=== PATIENT | female | born 1955 | race Caucasian/White ===

== ENCOUNTER 2018-08-24 12:10 | Emergency (ER) | payer MEDICAID ==
[~2018-08-24] VITALS: Ht 160 cm; Wt 77.1 kg
[2018-08-24] MEDS ORDERED: NEXIUM40 MG PO (12:34)
[2018-08-24] MEDS ORDERED: POTASSIUM20 PO (12:35)
[2018-08-24] MEDS ORDERED: PREDNISONE 10 M10 MG PO (12:35)
[2018-08-24] MEDS ORDERED: ARMOUR THYROID60 M1 PO (12:35)
[2018-08-24] MEDS ORDERED: VITAMIN D1000 UNI1 PO (12:35)
[2018-08-24] MEDS ORDERED: NORCO 5-325 TA1 EACH PO ×2 (13:10→13:13)
[2018-08-24 13:26] VITALS: BP 144/90
== END 2018-08-24 13:26 | disposition home or self-care (01) ==
LOC: M.ERS 12:10
DX: S23.41XA Sprain of ribs, initial encounter (principal); M19.90 Unspecified osteoarthritis, unspecified site; M79.7 Fibromyalgia; K58.9 Irritable bowel syndrome, unspecified; Z88.8 Allergy status to other drugs, medicaments and biological substances; Z91.041 Radiographic dye allergy status; Z88.0 Allergy status to penicillin; Z88.6 Allergy status to analgesic agent; X50.1XXA Overexertion from prolonged static or awkward postures, initial encounter; Y92.89 Other specified places as the place of occurrence of the external cause; Y93.89 Activity, other specified; Y99.8 Other external cause status

== ENCOUNTER 2018-11-30 13:43 | Emergency (ER) | payer MEDICAID ==
[~2018-11-30] VITALS: Ht 160 cm; Wt 75.8 kg
[~2018-11-30 13:43] MED LIST: ARMOUR THYROID60 M1 PO; NEXIUM40 MG PO; NORCO 5-325 TA1 EACH PO; POTASSIUM20 PO; PREDNISONE 10 M10 MG PO; VITAMIN D1000 UNI1 PO
[2018-11-30] MEDS ORDERED: BACTRIM DS TAB1 EACH PO (14:10)
[2018-11-30] MEDS ORDERED: NORCO 5-325 TA1 EAC1 PO (14:12)
[2018-11-30 14:19] VITALS: BP 116/88
[2018-12-01] MEDS ORDERED: ZANTAC 150MG T150 MG PO (21:23)
== END 2018-11-30 14:20 | disposition home or self-care (01) ==
LOC: M.ERS 13:43
DX: N61.0 Mastitis without abscess (principal); K58.9 Irritable bowel syndrome, unspecified; M79.7 Fibromyalgia; M19.90 Unspecified osteoarthritis, unspecified site; Z88.0 Allergy status to penicillin; Z88.6 Allergy status to analgesic agent; Z91.041 Radiographic dye allergy status; Z88.8 Allergy status to other drugs, medicaments and biological substances

== ENCOUNTER 2018-12-01 21:11 | Inpatient (IN) | payer MEDICAID ==
[~2018-12-01] VITALS: Ht 160 cm; Wt 74.8 kg
[~2018-12-01 21:11] MED LIST changes: +BACTRIM DS TAB1 EACH PO; +NORCO 5-325 TA1 EAC1 PO
[2018-12-01 21:13] VITALS: BP 141/89
[2018-12-01] MEDS ORDERED: ZANTAC 150MG T150 MG PO (21:23)
[2018-12-01 21:42] LABS: ABSOLUTE BASOPHILS 0.1 thou/uL (0.0-0.2); ABSOLUTE EOSINOPHILS 0.1 thou/uL (0.0-0.7); ABSOLUTE LYMPHOCYTES 1.6 thou/uL (0.8-5.3); ABSOLUTE MONOCYTES 0.5 thou/uL (0.0-1.2); ABSOLUTE NEUTROPHILS 4.7 thou/uL (1.6-8.1); BASOPHILS 0.8 %; EOSINOPHILS 1.1 %; HEMATOCRIT 42.9 % (37.0-47.0); HEMOGLOBIN 14.3 gm/dL (12.0-15.0); LYMPHOCYTES 23.1 %; MCH 31.1 pg (26.0-34.0); MCHC 33.4 g/dL (28.0-37.0); MCV 93.3 fL (80.0-100.0); MONOCYTES 7.7 %; MPV 7.2 fl. (7.2-11.1); NUCLEATED RBCS 0 /100WBC; PLATELET COUNT* 204 thou/uL (150-400); POLYS 67.3 %; RDW-CV 14.1 % (10.5-14.5)
[2018-12-01 21:46] LABS: CALCIUM 8.5 mg/dL (8.5-10.1); CREATININE 1.2 mg/dL (0.6-1.3); POTASSIUM 3.4 mmol/L (3.5-5.1)
[2018-12-01 23:02] LABS: URINE BLOOD NEGATIVE (Negative); URINE CLARITY CLEAR; URINE COLOR YELLOW; URINE GLUCOSE-RANDOM NEGATIVE (Negative); URINE KETONES NEGATIVE (Negative); URINE LEUKOCYTES-REFLEX NEGATIVE (Negative); URINE NITRITE-REFLEX NEGATIVE (Negative); URINE PROTEIN TRACE (Negative); URINE SPECIFIC GRAVITY >= 1.030 (1.005-1.030); URINE UROBILINOGEN 0.2 E.U./dl (0.2-1.0)
[2018-12-01 23:09] LABS: URINE BILIRUBIN 1+ (Negative)
[2018-12-01 23:12] LABS: ICTOTEST (BILI CONFIRMATORY) Negative (Negative)
[2018-12-01 23:30] VITALS: BP 130/80
[2018-12-02 00:50] VITALS: BP 113/72
[2018-12-02 07:31] LABS: PROTIME 10.7 Seconds (9.20-11.50)
[2018-12-02 08:00] VITALS: BP 139/83
--- NOTE | 2018-12-02 09:47 | EKG ---
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 : 1955 Requested By: Mima Pop Order Number: [id number] MD: Farooq Trinh Measurements Intervals [place] Rate: 77 P: 48 CT: 118 QRS: 57 QRSD: 86 T: 43 QT: 406 QTc: 460 Interpretive Statements Sinus rhythm Borderline short CT interval Low voltage, extremity and precordial leads Abnormal R-wave progression, early transition No previous ECG available for comparison Electronically Signed On 12-02-2018 9:46:39 CDT by Farooq Trinh [email or web address] <ELECTRONICALLY SIGNED> By: Farooq Trinh MD, [facility] 12/02/18 0946 31 31 Farooq Trinh MD, [facility] /EPI
[2018-12-02 22:03] VITALS: BP 116/80
[2018-12-03] VITALS: BP 125/69
[2018-12-03 04:00] VITALS: BP 112/67
[2018-12-03 05:22] LABS: HEMATOCRIT 37.4 % (37.0-47.0); HEMOGLOBIN 12.6 gm/dL (12.0-15.0); MCH 31.3 pg (26.0-34.0); MCHC 33.6 g/dL (28.0-37.0); MCV 93.3 fL (80.0-100.0); MPV 7.1 fl. (7.2-11.1); NUCLEATED RBCS 0 /100WBC; PLATELET COUNT* 197 thou/uL (150-400); RBC 4.01 mil/uL (4.20-5.00); RDW-CV 13.8 % (10.5-14.5); WBC 11.5 thou/uL (4.0-11.0)
[2018-12-03 05:29] LABS: CALCIUM 8.4 mg/dL (8.5-10.1); MAGNESIUM 1.8 mg/dL (1.8-2.4); POTASSIUM 4.1 mmol/L (3.5-5.1)
[2018-12-03 06:04] LABS: ABSOLUTE LYMPHOCYTES 0.8 thou/uL (0.8-5.3); ABSOLUTE MONOCYTES 0.5 thou/uL (0.0-1.2); ABSOLUTE NEUTROPHILS 10.2 thou/uL (1.6-8.1); PLATELET ESTIMATE ADEQUATE
[2018-12-03 06:05] LABS: ANISOCYTOSIS 1+; POIKILOCYTOSIS 1+; POLYCHROMASIA Occasional
[2018-12-03 07:15] VITALS: BP 106/70
[2018-12-03 16:00] VITALS: BP 94/64
[2018-12-03 20:20] VITALS: BP 92/61
[2018-12-04 04:00] VITALS: BP 106/73
[2018-12-04 05:08] LABS: HEMATOCRIT 30.5 % (37.0-47.0)
[2018-12-04 05:23] LABS: HEMOGLOBIN 10.2 gm/dL (12.0-15.0)
[2018-12-04 09:23] VITALS: BP 93/51
[2018-12-04 16:00] VITALS: BP 103/69
[2018-12-04 20:00] VITALS: BP 92/62
[2018-12-05 07:47] VITALS: BP 100/68
[2018-12-05] MEDS ORDERED: SENOKOT-S1 TA2 PO ×2 (09:28→11:50)
[2018-12-05] MEDS ORDERED: NORCO 5-325 TA1 EAC1 PO ×2 (09:31→11:50)
[2018-12-05] MEDS ORDERED: ELIQUIS5 MG PO ×2 (09:33→11:50)
[2018-12-05 12:00] VITALS: BP 100/68
[2018-12-05 16:00] VITALS: BP 101/73
--- NOTE | 2018-12-06 02:06 | PATH ---
[place] [address] PATHOLOGY RPT PROCEDURE Name: JULIO CÉSAR ONOFRE Room: [address] IN M.R.#: [id number] Admission: 12/01/18 Date of : 55 Discharge: 12/05/18 Report #: [id number] Path Case #: [id number] [facility] Accession Number: [id number] . 01 Material submitted: . hip - BONE FROM FRACTURE SITE RIGHT HIP - FS. Modifiers: right . 02 Frozen section diagnosis: . FROZEN DIAGNOSIS WITH TOUCH PREP: (Juan Shipman MD) . Fracture site right hip: - Benign bone fragments and hematopoietic elements. Results are relayed directly to Dr. Campos in the operating room and a note is entered into the medical record. . Frozen section and touch prep performed at [facility], [address] [place] [address]. . FROZEN SECTION GROSS DESCRIPTION: Received fresh from the operating room accompanied by a label marked "Julio César Onofre, bone fracture right hip", are two fragments of hemorrhagic bony tissue aggregating measuring 1.4 x [address] Campos requests intraoperative evaluation for the possibility of malignancy. He notes that clinically there is no obvious neoplasia. Each of the fragments is cut into fairly easily and it is determined that frozen section study will be attempted on approximately half of the specimen and a touch prep is also prepared. Tissues from which frozen sections are performed are submitted in cassette A1 and the remainder of the entire specimen is submitted in cassette A2. (ELOY:antonio; ) BSM/QMS . 03 Diagnosis: "Bone from fracture site right hip", curettage: - Decalcified bone with reactive changes and focal fresh hemorrhage consistent with fracture site. - Bone marrow with trilineage hematopoiesis. - Skeletal muscle with mild reactive changes. (CLW:pit; 12/04/2018) QTP/12/04/2018 . 03 Electronically signed: . Cindy Marie MD, Pathologist NPI- [id number] . 01 Gross description: . Please see frozen section gross description [place] [address] PATHOLOGY RPT PROCEDURE Name: JULIO CÉSAR ONOFRE Room: [address] DIS IN M.R.#: [id number] Admission: 12/01/18 Date of : 55 Discharge: 12/05/18 Report #: [id number] Path Case #: [id number] located under the Frozen Section portion of this case. /QMS . 03 Pathologist provided ICD-10: S72.001A . 03 CPT . 278339, 612046, 319779 Specimen Comment: A courtesy copy of this report has been sent to Specimen Comment: [phone], . Specimen Comment: Report sent to and Performed at: 01 [facility] [address] [place] [id number] MD Robert Contreras MD Phone: [phone] Performed at: 02 [facility] [address] , [place], [place] [id number] MD Juan Shipman MD Phone: [phone] Performed at: 03 [facility] [address] [id number] MD Oscar Hernandez MD Phone: [phone]
== END 2018-12-05 20:30 | DRG 479 ==
LOC: M.ERS 21:11 → M.ORTHSURG 22:16 → M.TBA-ER 22:16 → M.ORTHSURG 22:16
PROVIDERS: Emergency Medicine; Family Medicine; Orthopaedic Surgery; ADMIT Internal Medicine
PROC: 0QS604Z Reposition Right Upper Femur with Internal Fixation Device, Open Approach (ICD-10-PCS; principal; 2018-12-02)
PROC: 0QB63ZX Excision of Right Upper Femur, Percutaneous Approach, Diagnostic (ICD-10-PCS; 2018-12-02)
DX: M84.451A Pathological fracture, right femur, initial encounter for fracture (principal); M19.90 Unspecified osteoarthritis, unspecified site; K21.9 Gastro-esophageal reflux disease without esophagitis; I10 Essential (primary) hypertension; L40.50 Arthropathic psoriasis, unspecified; E03.9 Hypothyroidism, unspecified; M79.7 Fibromyalgia; K58.9 Irritable bowel syndrome, unspecified; Z88.0 Allergy status to penicillin; Z88.8 Allergy status to other drugs, medicaments and biological substances; Z88.6 Allergy status to analgesic agent; Z91.041 Radiographic dye allergy status; Z90.49 Acquired absence of other specified parts of digestive tract

== ENCOUNTER 2018-12-05 14:55 | Inpatient (IN) | payer MEDICAID ==
[~2018-12-05] VITALS: Ht 160 cm; Wt 74.8 kg
[~2018-12-05 14:55] MED LIST changes: +ELIQUIS5 MG PO; +SENOKOT-S1 TA2 PO; +ZANTAC 150MG T150 MG PO
[2018-12-05 21:00] VITALS: BP 118/63
[2018-12-06 05:06] LABS: HEMATOCRIT 30.4 % (37.0-47.0); HEMOGLOBIN 10.3 gm/dL (12.0-15.0); MCH 31.7 pg (26.0-34.0); MCHC 33.7 g/dL (28.0-37.0); MCV 93.9 fL (80.0-100.0); RBC 3.24 mil/uL (4.20-5.00); RDW-CV 14.1 % (10.5-14.5); WBC 7.4 thou/uL (4.0-11.0)
[2018-12-06 05:11] LABS: CALCIUM 8.1 mg/dL (8.5-10.1); POTASSIUM 3.9 mmol/L (3.5-5.1)
[2018-12-06 08:36] VITALS: BP 114/75
[2018-12-06 19:53] VITALS: BP 99/66
[2018-12-07 03:07] LABS: GLYCOHEMOGLOBIN (HGB A1C) 5.1 % (4.8-5.6)
[2018-12-07 08:34] VITALS: BP 123/70
[2018-12-07 19:30] VITALS: BP 102/60
[2018-12-08 08:23] VITALS: BP 108/65
[2018-12-08 19:30] VITALS: BP 130/80
[2018-12-09 07:30] VITALS: BP 116/71
[2018-12-09 08:00] VITALS: BP 116/71
[2018-12-09 19:30] VITALS: BP 102/68
[2018-12-10 04:56] LABS: HEMATOCRIT 30.9 % (37.0-47.0); HEMOGLOBIN 10.4 gm/dL (12.0-15.0); MCH 31.4 pg (26.0-34.0); MCHC 33.6 g/dL (28.0-37.0); MCV 93.5 fL (80.0-100.0); MPV 6.7 fl. (7.2-11.1); RBC 3.3 mil/uL (4.20-5.00); RDW-CV 14.2 % (10.5-14.5); WBC 6.8 thou/uL (4.0-11.0)
[2018-12-10 05:13] LABS: CALCIUM 8.3 mg/dL (8.5-10.1); POTASSIUM 4.3 mmol/L (3.5-5.1)
[2018-12-10 07:30] VITALS: BP 102/68
[2018-12-10 08:00] VITALS: BP 103/70
[2018-12-10 19:30] VITALS: BP 102/72
[2018-12-11 07:56] VITALS: BP 105/71
[2018-12-11 20:31] VITALS: BP 115/69
[2018-12-12 08:11] VITALS: BP 98/61
[2018-12-12 20:28] VITALS: BP 100/59
[2018-12-13 08:00] VITALS: BP 129/83
[2018-12-13 20:00] VITALS: BP 108/66
[2018-12-14 08:26] VITALS: BP 110/69
[2018-12-14 21:20] VITALS: BP 122/68
[2018-12-15 08:21] VITALS: BP 129/67
[2018-12-15 20:00] VITALS: BP 103/68
[2018-12-16 08:00] VITALS: BP 115/72
[2018-12-16 19:30] VITALS: BP 98/60
[2018-12-17 07:30] VITALS: BP 98/70
[2018-12-17 20:23] VITALS: BP 105/67
[2018-12-18 08:00] VITALS: BP 110/72
[2018-12-18 20:28] VITALS: BP 98/62
[2018-12-19 08:00] VITALS: BP 106/78
[2018-12-19 13:49] VITALS: BP 106/78
== END 2018-12-19 17:11 | disposition home or self-care (01) | DRG 536 ==
LOC: M.REH 14:55
PROVIDERS: Family Medicine; ADMIT Physical Medicine & Rehabilitation
DX: S72.21XA Displaced subtrochanteric fracture of right femur, initial encounter for closed fracture (principal); D62 Acute posthemorrhagic anemia; E87.1 Hypo-osmolality and hyponatremia; L40.50 Arthropathic psoriasis, unspecified; E03.9 Hypothyroidism, unspecified; K58.9 Irritable bowel syndrome, unspecified; K21.9 Gastro-esophageal reflux disease without esophagitis; L40.52 Psoriatic arthritis mutilans; M79.7 Fibromyalgia; R29.6 Repeated falls; R53.81 Other malaise; G89.29 Other chronic pain; W18.39XA Other fall on same level, initial encounter; Y93.89 Activity, other specified; Y92.89 Other specified places as the place of occurrence of the external cause; Z79.52 Long term (current) use of systemic steroids; Z88.0 Allergy status to penicillin; Z88.8 Allergy status to other drugs, medicaments and biological substances; Z91.041 Radiographic dye allergy status; Z90.49 Acquired absence of other specified parts of digestive tract; Z79.891 Long term (current) use of opiate analgesic; Y99.8 Other external cause status

== ENCOUNTER → 2018-12-30 | Outpatient (CLI) | payer MEDICAID | LOC: M.LAB 12:00 | DX: S72.21XD Displaced subtrochanteric fracture of right femur, subsequent encounter for closed fracture with routine healing (principal); X58.XXXD Exposure to other specified factors, subsequent encounter ==

== ENCOUNTER 2019-02-04 20:37 | Emergency (ER) | payer MEDICAID ==
[~2019-02-04] VITALS: Ht 160 cm; Wt 74.8 kg
[2019-02-04] MEDS ORDERED: VITAMIN D350000 UNIT PO (20:52)
[2019-02-04] MEDS ORDERED: PEPCID40 MG PO (20:52)
[2019-02-04] MEDS ORDERED: NORCO 5-325 TA1 EAC1 PO (21:09)
[2019-02-04 21:32] VITALS: BP 136/86
== END 2019-02-04 21:40 | disposition home or self-care (01) ==
LOC: M.ERS 20:37
DX: M79.604 Pain in right leg (principal); E03.9 Hypothyroidism, unspecified; M19.90 Unspecified osteoarthritis, unspecified site; K58.9 Irritable bowel syndrome, unspecified; K21.9 Gastro-esophageal reflux disease without esophagitis; Z88.1 Allergy status to other antibiotic agents; Z91.041 Radiographic dye allergy status; Z88.0 Allergy status to penicillin; Z88.8 Allergy status to other drugs, medicaments and biological substances; Z86.2 Personal history of diseases of the blood and blood-forming organs and certain disorders involving the immune mechanism; Z90.49 Acquired absence of other specified parts of digestive tract

== ENCOUNTER → 2019-02-10 | Outpatient (CLI) | payer MEDICAID ==
[~2019-02-10] MED LIST changes: +PEPCID40 MG PO; +VITAMIN D350000 UNIT PO
== END ==
LOC: M.LAB 12:05
DX: E55.9 Vitamin D deficiency, unspecified (principal)

== ENCOUNTER 2019-03-19 09:15 | Emergency (ER) | payer MEDICAID ==
[~2019-03-19] VITALS: Ht 160 cm; Wt 71.2 kg
[2019-03-19 09:56] LABS: ABSOLUTE MONOCYTES 0.7 thou/uL (0.0-1.2); ABSOLUTE NEUTROPHILS 8.4 thou/uL (1.6-8.1); BASOPHILS 0.5 %; EOSINOPHILS 0.4 %; HEMATOCRIT 42.9 % (37.0-47.0); HEMOGLOBIN 14.5 gm/dL (12.0-15.0); LYMPHOCYTES 10.1 %; MCHC 33.9 g/dL (28.0-37.0); MCV 85.7 fL (80.0-100.0); MONOCYTES 6.6 %; MPV 7.1 fl. (7.2-11.1); NUCLEATED RBCS 0 /100WBC; PLATELET COUNT* 217 thou/uL (150-400); POLYS 82.4 %; RBC 5.01 mil/uL (4.20-5.00); RDW-CV 15.1 % (10.5-14.5); WBC 10.2 thou/uL (4.0-11.0)
[2019-03-19 10:05] LABS: CALCIUM 8.7 mg/dL (8.5-10.1); CREATININE 1.1 mg/dL (0.6-1.3); POTASSIUM 3.2 mmol/L (3.5-5.1)
[2019-03-19 10:15] LABS: ALBUMIN 3.4 g/dL (3.4-5.0); TOTAL BILIRUBIN 0.7 mg/dL (<0.1-1.0); TOTAL PROTEIN 6.7 g/dL (6.4-8.2)
[2019-03-19] MEDS ORDERED: ZOFRAN ODT4 MG PO (10:26)
[2019-03-19 10:48] VITALS: BP 104/75
--- NOTE | 2019-03-19 15:18 | EKG ---
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: : 1955 Requested By: Cristiano Mae Order Number: [id number] MD: Farooq Trinh Measurements Intervals [place] Rate: 92 P: 38 [place]: 119 QRS: 41 QRSD: 79 T: 117 QT: 320 QTc: 396 Interpretive Statements Sinus rhythm Borderline short [place] interval Abnormal T, consider ischemia, anterior leads Compared to ECG 12/01/2018 21:32:14 T-wave abnormality now present Possible ischemia now present Electronically Signed On 03-19-2019 15:18:07 [employer] by Farooq Trinh [email or web address] <ELECTRONICALLY SIGNED> By: Farooq Trinh MD, [facility] 03/19/19 1518 [id number] Farooq Trinh MD, [facility] /EPI
== END 2019-03-19 10:48 | disposition home or self-care (01) ==
LOC: M.ERS 09:15
PROVIDERS: Emergency Medicine
DX: K21.9 Gastro-esophageal reflux disease without esophagitis (principal); M79.7 Fibromyalgia; E03.9 Hypothyroidism, unspecified; Z85.828 Personal history of other malignant neoplasm of skin; M19.90 Unspecified osteoarthritis, unspecified site; Z88.0 Allergy status to penicillin; Z91.041 Radiographic dye allergy status; Z88.8 Allergy status to other drugs, medicaments and biological substances

== ENCOUNTER 2019-08-11 17:12 | Emergency (ER) | payer MEDICAID ==
[~2019-08-11] VITALS: Ht 160 cm; Wt 68.0 kg
[~2019-08-11 17:12] MED LIST changes: +ZOFRAN ODT4 MG PO
[2019-08-11] MEDS ORDERED: PREDNISONE 20 M20 MG PO (17:48)
[2019-08-11] MEDS ORDERED: TYLENOL WITH CO1 TA1 PO (17:48)
[2019-08-11 17:57] VITALS: BP 153/70
== END 2019-08-11 17:58 | disposition home or self-care (01) ==
LOC: M.ERS 17:12
DX: M79.642 Pain in left hand (principal); M79.641 Pain in right hand; K21.9 Gastro-esophageal reflux disease without esophagitis; M19.90 Unspecified osteoarthritis, unspecified site; M79.7 Fibromyalgia; L40.50 Arthropathic psoriasis, unspecified; Z90.49 Acquired absence of other specified parts of digestive tract; Z86.2 Personal history of diseases of the blood and blood-forming organs and certain disorders involving the immune mechanism; Z88.0 Allergy status to penicillin; Z91.041 Radiographic dye allergy status; Z88.6 Allergy status to analgesic agent; Z88.8 Allergy status to other drugs, medicaments and biological substances

== ENCOUNTER 2019-09-04 12:39 | Emergency (ER) | payer MEDICAID ==
[~2019-09-04] VITALS: Ht 160 cm; Wt 68.0 kg
[~2019-09-04 12:39] MED LIST changes: +PREDNISONE 20 M20 MG PO; +TYLENOL WITH CO1 TA1 PO
[2019-09-04] MEDS ORDERED: PRILOSEC2.5 MG PO (12:52)
[2019-09-04] MEDS ORDERED: ERYTHROMYCIN500 MG PO (13:29)
[2019-09-04 13:36] VITALS: BP 134/72
== END 2019-09-04 13:37 | disposition home or self-care (01) ==
LOC: M.ERS 12:39
DX: T21.11XA Burn of first degree of chest wall, initial encounter (principal); T22.111A Burn of first degree of right forearm, initial encounter; T23.102A Burn of first degree of left hand, unspecified site, initial encounter; T23.171A Burn of first degree of right wrist, initial encounter; K58.9 Irritable bowel syndrome, unspecified; K21.9 Gastro-esophageal reflux disease without esophagitis; M79.7 Fibromyalgia; M19.90 Unspecified osteoarthritis, unspecified site; Z90.49 Acquired absence of other specified parts of digestive tract; Z86.2 Personal history of diseases of the blood and blood-forming organs and certain disorders involving the immune mechanism; Z91.041 Radiographic dye allergy status; Z88.0 Allergy status to penicillin; Z88.6 Allergy status to analgesic agent; Z88.8 Allergy status to other drugs, medicaments and biological substances; X10.1XXA Contact with hot food, initial encounter; Y93.89 Activity, other specified; Y92.89 Other specified places as the place of occurrence of the external cause; Y99.8 Other external cause status